=== PATIENT | female | born 1990 | race Caucasian/White ===

== ENCOUNTER 2021-06-08 05:08 | Inpatient (IN) | payer OTHER ==
[~2021-06-08] VITALS: Ht 157.5 cm; Wt 78.2 kg
[2021-06-08] MEDS ORDERED: OXYTOCIN 30U/ 0.9% NaCL 500ML 500 ML ONE (06:27)
[2021-06-08] MEDS ORDERED: MISOPROSTOL 200 MCG TABLET ONE (06:27)
[2021-06-08] MEDS ORDERED: LIDOCAINE 1%, 20ML ONE (06:27)
[2021-06-08] MEDS ORDERED: NEWBORN KIT ONE (06:27)
[2021-06-08] MEDS ORDERED: D5%-LACTATED RINGERS 1,000 ML IV SCH (07:00)
[2021-06-08] MEDS ORDERED: TERBUTALINE 1 MG/ML, 1ML SQ PRN (07:00)
[2021-06-08] MEDS ORDERED: MISOPROSTOL 25 MCG TABLET VG PRN (07:00)
[2021-06-08] MEDS ORDERED: TERBUTALINE 1 MG/ML, 1ML IVPush PRN (07:00)
[2021-06-08] MEDS ORDERED: CALCIUM CARBONATE 500 MG TAB.CHEW PO PRN ×2 (07:00→23:00)
[2021-06-08] MEDS ORDERED: FENTANYL PF 100 MCG/2ML IV PRN (07:00)
[2021-06-08] MEDS ORDERED: OXYTOCIN 30U/ 0.9% NaCL 500ML 500 ML IV ONE (07:00)
[2021-06-08] MEDS ORDERED: OXYTOCIN 30U/ 0.9% NaCL 500ML 500 ML IV PRN (07:00)
[2021-06-08] MEDS ORDERED: ONDANSETRON 2MG/ML, 2ML IVPush PRN (07:00)
[2021-06-08] MEDS ORDERED: FENTANYL PF 100 MCG/2ML IVPush PRN (07:00)
[2021-06-08 07:03] LABS: BASOPHILS % (AUTO) 1 % (0-1); EOSINOPHILS % (AUTO) 1 % (1-7); LYMPHOCYTES % (AUTO) 25 % (22-44); MEAN CORPUSCULAR HEMOGLOBIN 33.6 pg (27.0-34.8); MEAN CORPUSCULAR HGB CONC 35.2 g/dL (32.4-35.8); MEAN PLATELET VOLUME 9.7 fL (7.4-10.4); MONOCYTES % (AUTO) 8 % (2-9); NEUTROPHILS % (AUTO) 66 % (42-75); PLATELET COUNT 161 x10^3/uL (130-400); RED BLOOD COUNT 3.59 x10^6/uL (3.82-5.3); RED CELL DISTRIBUTION WIDTH 12.8 % (9.6-15.2)
[2021-06-08] MEDS ORDERED: MISOPROSTOL 25 MCG TABLET ONE (07:07)
[2021-06-08] MEDS: LACTATED RINGERS 1,000 ML IV SCH ×2 (16:00→16:45)
[2021-06-08] MEDS ORDERED: NALOXONE 0.4 MG/ML, 1ML IVPush PRN (16:30)
[2021-06-08] MEDS ORDERED: LACTATED RINGERS 1,000 ML IVBOLUS PRN (16:30)
[2021-06-08] MEDS ORDERED: EPHEDRINE 50 MG/ML, 1ML IVPush PRN (16:30)
[2021-06-08] MEDS ORDERED: FENTANYL/BUPIV./NS/PF 250 ML EPIDCONT SCH (16:30)
[2021-06-08] MEDS ORDERED: LACTATED RINGERS 1,000 ML IV SCH (16:30)
[2021-06-08] MEDS ORDERED: BUPIVACAINE 0.25% ONE (16:33)
[2021-06-08] MEDS ORDERED: LIDOCAINE/PF 1.5% EPI 1:200K, 10 ML ONE (16:33)
[2021-06-08] MEDS ORDERED: IBUPROFEN 600 MG TABLET ONE (22:31)
[2021-06-08] MEDS: IBUPROFEN 600 MG TABLET PO PRN (22:35)
[2021-06-08] MEDS ORDERED: DOCUSATE 100 MG CAPSULE PO PRN (23:00)
[2021-06-08] MEDS ORDERED: HYDROcodone/APAP 5/325 TABLET PO PRN (23:00)
[2021-06-08] MEDS ORDERED: MISOPROSTOL 200 MCG TABLET PR PRN (23:00)
[2021-06-08] MEDS ORDERED: BISACODYL 10 MG SUPP PR PRN (23:00)
[2021-06-08] MEDS ORDERED: SIMETHICONE 80 MG CHEW TAB PO PRN (23:00)
[2021-06-08] MEDS: OXYTOCIN 30U/ 0.9% NaCL 500ML 500 ML IV SCH ×2 (23:00→23:36)
[2021-06-08] MEDS ORDERED: ONDANSETRON 2MG/ML, 2ML IV PRN (23:00)
[2021-06-08] MEDS ORDERED: ACETAMINOPHEN 325 MG TABLET PO PRN ×2 (23:00)
[2021-06-09] MEDS: OXYTOCIN 30U/ 0.9% NaCL 500ML 500 ML IV SCH ×8 (00:26→09:02)
[2021-06-09 00:40] VITALS: BP 96/60
[2021-06-09] MEDS: IBUPROFEN 600 MG TABLET PO PRN ×3 (04:45→18:55)
[2021-06-09 04:59] VITALS: BP 102/64
[2021-06-09 06:44] LABS: BASOPHILS % (AUTO) 0 % (0-1); EOSINOPHILS % (AUTO) 1 % (1-7); LYMPHOCYTES % (AUTO) 22 % (22-44); MEAN CORPUSCULAR HEMOGLOBIN 32.9 pg (27.0-34.8); MEAN CORPUSCULAR HGB CONC 34.7 g/dL (32.4-35.8); MEAN PLATELET VOLUME 9.7 fL (7.4-10.4); MONOCYTES % (AUTO) 7 % (2-9); NEUTROPHILS % (AUTO) 69 % (42-75); PLATELET COUNT 143 x10^3/uL (130-400); RED BLOOD COUNT 3.58 x10^6/uL (3.82-5.3); RED CELL DISTRIBUTION WIDTH 12.5 % (9.6-15.2)
[2021-06-09 08:00] VITALS: BP 97/67
[2021-06-09] MEDS ORDERED: PRENATAL VIT/IRON/FA 1 EACH TABLET PO SCH (09:00)
[2021-06-09] MEDS ORDERED: ONDANSETRON ODT 4 MG ONE (10:59)
[2021-06-09] MEDS: ONDANSETRON ODT 4 MG PO PRN ×2 (11:00→18:58)
[2021-06-09] MEDS: HYDROcodone/APAP 5/325 TABLET PO PRN ×2 (11:01→18:55)
[2021-06-09 12:35] VITALS: BP 97/58
[2021-06-09 16:40] VITALS: BP 98/64
== END 2021-06-09 22:20 | disposition home or self-care (01) | DRG 807 ==
LOC: LDIP 05:08 → 2NW 06-09 00:29
PROVIDERS: ADMIT Obstetrics & Gynecology; ATTEND Obstetrics & Gynecology
PROC: 0HQ9XZZ Repair Perineum Skin, External Approach (ICD-10-PCS; principal; 2021-06-08)
PROC: 10E0XZZ Delivery of Products of Conception, External Approach (ICD-10-PCS; 2021-06-08)
PROC: 10907ZC Drainage of Amniotic Fluid, Therapeutic from Products of Conception, Via Natural or Artificial Opening (ICD-10-PCS; 2021-06-08)
PROC: 3E033VJ Introduction of Other Hormone into Peripheral Vein, Percutaneous Approach (ICD-10-PCS; 2021-06-08)
PROC: 3E0R3BZ Introduction of Anesthetic Agent into Spinal Canal, Percutaneous Approach (ICD-10-PCS; 2021-06-08)
PROC: 00HU33Z Insertion of Infusion Device into Spinal Canal, Percutaneous Approach (ICD-10-PCS; 2021-06-08)
PROC: 0HQ9XZZ Repair Perineum Skin, External Approach (ICD-10-PCS; 2021-06-08)
DX: O69.81X0 Labor and delivery complicated by cord around neck, without compression, not applicable or unspecified (principal); Z37.0 Single live birth; O70.0 First degree perineal laceration during delivery; Z3A.39 39 weeks gestation of pregnancy; Z20.822 Contact with and (suspected) exposure to COVID-19
CPT/HCPCS: 36415; 85025; 86592; 86850; 86900; G0378; Q0162; U0005; J2590; J7120; U0003